=== PATIENT | female | born 1965 | race Caucasian/White ===

== ENCOUNTER 2018-05-09 16:20 | Emergency (ER) | payer SELFPAY ==
[~2018-05-09] VITALS: Ht 154.9 cm; Wt 73.0 kg
[~2018-05-09 16:20] MED LIST: ACETAMINOPHEN 325MG TABLET ONE
[2018-05-09 17:31] VITALS: BP 179/105
== END 2018-05-09 23:31 | disposition home or self-care (01) ==
LOC: ER 16:42
DX: S61.210A Laceration without foreign body of right index finger without damage to nail, initial encounter (principal); W22.8XXA Striking against or struck by other objects, initial encounter; Y93.89 Activity, other specified; Y92.89 Other specified places as the place of occurrence of the external cause; Y99.8 Other external cause status; Z90.710 Acquired absence of both cervix and uterus; Z98.890 Other specified postprocedural states
CPT/HCPCS: 29130; 73140; 99283; Z7610